=== PATIENT | female | born 1970 | race Caucasian/White ===

== ENCOUNTER → 2017-02-05 | Outpatient (CLI) | payer MEDICARE, OTHER ==
[~2017-02-05] MED LIST: ABILIFY PO; BENTYL20 MG PO; COGENTIN PO; FLEXERIL10 M1 PO; GEODON60 MG PO; IBUPROFEN; IBUPROFEN800 MG PO; KEPPRA500 M2 PO; LORCET 10-6501 EACH PO; LORTAB 5/500 TA1 TA1 PO; PAXIL CR PO; PHENERGAN25 MG PO; PRILOSEC20 M1 PO; RISPERIDONE PO; VICODIN PO; VOLTAREN50 MG PO; VOLTAREN75 MG PO; ZOLOFT
--- NOTE | ~2017-02-05 | CR170 ---
[facility]. [facility] A Service of [facility] & [facility] RADIOLOGY TEXT RESULTS PATIENT: LUIS MANUEL GARZA LOCATION: [facility] : 70 UNIT #: [id number] AGE: [address]: SARAH CHE APRN SEX: F ORDER DR: [id number] [address] [address] [id number] O MR#: [id number] Acc #: [id number] NAME: LUIS MANUEL GARZA : 1970 SEX: F STUDY DATE/TIME: 02/05/2017 15:42 UNIT: [facility] ROOM: STUDY DESCRIPTION: CR Knee 2 Views Rt Attending Physician: Sarah Che Aprn Referring Physician: Sarah Che Aprn Ordering Physician: Sarah Che Aprn Primary Care Physician: Sarah Che Aprn MEDICAL IMAGING REPORT This report is preliminary unless electronic signature is present. EXAM Right knee 2 views 02/05/2017 HISTORY Right knee pain. Twisted knee yesterday. Pain anterior aspect of right knee. FINDINGS Two views of the right knee demonstrate no fracture. There is degenerative change with mild narrowing of the medial compartment of the knee. Small osteophytes are seen along the posterior aspect of the patella. There is a small knee joint effusion. IMPRESSION 1. Mild degenerative change right knee. No evidence of fracture. 2. Small knee joint effusion. Dictated by... Maycol Márquez M.D. THIS IS AN ELECTRONICALLY VERIFIED REPORT Maycol Márquez M.D. at 02/06/2017 7:23 AM [email or web address] TD: 02/06/2017 07:07 JOB #: [id number] MEDICAL IMAGING REPORT Page 1 of 1
== END | disposition home or self-care (01) ==
LOC: SRAD 15:29
DX: S89.91XA Unspecified injury of right lower leg, initial encounter (principal); M17.11 Unilateral primary osteoarthritis, right knee; M25.461 Effusion, right knee
CPT/HCPCS: 73560